=== PATIENT | female | born 1965 | race African-American/Black ===

== ENCOUNTER 2016-12-12 04:54 | Emergency (ER) | payer OTHER ==
[~2016-12-12] VITALS: Ht 160 cm; Wt 108.9 kg
--- NOTE | 2016-12-12 05:18 | ED NEURO DEFICIT/STROKE ---
History of Present Illness General Chief Complaint: General Adult Stated Complaint: LT SIDE FACIAL NUMBNESS,C/O HIGH BP,LT L Source: patient Exam Limitations: no limitations Vital Signs & Intake/Output Vital Signs & Intake/Output Vital Signs Date Time Temp Pulse Resp B/P B/P Pulse O2 O2 Flow FiO2 Mean Ox Delivery Rate 12/12 0540 138/79 12/12 0510 97.2 87 18 160/88 99 Room Air Triage Note: PT TO ED C/O L LEG PAIN FROM HIP TO KNEE. PT ALSO STATES SHE HAS LEFT SIDED FACIAL NUMBNESS. PT STATES IF SHE PRESSES ON FACE IT IS PAINFUL. PT STATES HER FACE FEELS TIGHT. PT STATES SHE TOOK 2 BABY ASPIRIN AND DRANK A BOTTLE OF WATER AND STARTED TO FEEL SOME RELIEF FROM FACIAL NUMBNESS. Triage Nurses Notes Reviewed? yes HPI: For the past week the patient has been having diffuse body aches but no fevers or chills. She took a few nights off from work to attempt to feel better. For the most part all of her symptoms have resolved however she continues to have pain from her left hip to behind her left knee. The pain is aching in nature. The pain is constant. There are no aggravating or mitigating factors. She rates the pain as 7 out of 10. Patient was at work tonight and it felt like her left side of her face went numb. The numbness stretched from her eye down or chin. Patient also felt like the left side of her face was scrunching up. Patient denies any headaches. This took her blood pressure work and was 160/88 which is elevated for the patient. Patient denies any headache or blurred vision. Patient became concerned this might be having a stroke so comes to the emergency room for evaluation. Patient took 2 baby aspirin prior to arrival. Past History Travel History Traveled to [place] past 21 day No Medical History Any Pertinent Medical History? none Surgical History Surgical History: non-contributory Psychosocial History What is your primary language Slovenian Tobacco Use: Never used ETOH Use: occasional use Illicit Drug Use: denies illicit drug use Family History Hx Contributory? No Review of Systems Review of Systems Constitutional: Reports: no symptoms. EENTM: Reports: no symptoms. Respiratory: Reports: no symptoms. Cardiovascular: Reports: no symptoms. GI: Reports: no symptoms. Genitourinary: Reports: no symptoms. Musculoskeletal: Reports: no symptoms. Skin: Reports: no symptoms. Neurological/Psychological: Reports: see HPI. Hematologic/Endocrine: Reports: no symptoms. Immunologic/Allergic: Reports: no symptoms. All Other Systems: Reviewed and Negative Physical Exam Physical Exam General Appearance: well developed/nourished, alert, awake, anxious, mild distress Head: atraumatic, normal appearance Eyes: Bilateral: PERRL, EOMI. Ears, Nose, Throat: normal ENT inspection, moist mucous membrane, hearing grossly normal Neck: normal inspection, supple, full range of motion Respiratory: normal breath sounds, chest non-tender, no respiratory distress, lungs clear Cardiovascular: regular rate/rhythm, normal peripheral pulses Gastrointestinal: normal bowel sounds, soft, non-tender Extremities: normal range of motion Psychiatric: awake, alert, oriented x 3 Cranial Nerves: normal hearing, normal speech, PERRL, NO FACIAL DROOP Coordination/Gait: normal gait Motor/Sensory: no motor/sensory deficits, NO SENSORY DEFICITS Core Measures CVA/TIA Diagnosis: No Severe Sepsis Present: No Septic Shock Present: No Progress Differential Diagnosis: Hua's Palsy, electrolyte imbalance, intracranial mass/ tumor, seizure disorder, stroke, subarachnoid Hem. Plan of Care: Orders Procedure Date/time Status TROPONIN LEVEL 12/12 516 Complete COMPREHENSIVE METABOLIC PANEL 12/12 516 Complete CBC WITHOUT DIFFERENTIAL 12/12 516 Complete EKG 12/12 516 Active Laboratory Tests 12/12/16 0534: Anion Gap 14, Estimated GFR > 60, BUN/Creatinine Ratio 18.9, Glucose 110 H, Calcium 9.2, Total Bilirubin 0.6, AST 32, ALT 56 H, Alkaline Phosphatase 109, Troponin I < 0.01, Total Protein 7.7, Albumin 4.1, Globulin 3.6, Albumin/ Globulin Ratio 1.1, CBC w Diff NO MAN DIFF REQ, RBC 4.87, MCV 79.9 L, MCH 26.2 L, RDW 15.7 H, MPV 9.4, Gran % 51.8, Lymphocytes % 38.5, Monocytes % 6.1, Eosinophils % 3.3, Basophils % 0.3, Absolute Granulocytes 5.7, Absolute Lymphocytes 4.2 H, Absolute Monocytes 0.7 H, Absolute Eosinophils 0.4, Absolute Basophils 0, PUBS MCHC 32.8 L Diagnostic Imaging: Viewed by Me: CT Scan. Discussed w/RAD: CT Scan. Radiology Impression: PATIENT: TAE CHAVES PRESENT AGE: 51 PATIENT ACCOUNT NO: [id number] : 63 LOCATION: [facility] ORDERING PHYSICIAN: NAYELI RANGEL MD SERVICE DATE: 12/12/16 EXAM TYPE: CAT - CT HEAD WO IV CONTRAST EXAMINATION: CT HEAD WITHOUT CONTRAST CLINICAL INFORMATION: Left facial numbness. COMPARISON: None. TECHNIQUE: Contiguous axial imaging was performed from the skull base to vertex without intravenous contrast. DLP: 529 mGy-cm. FINDINGS: There is no evidence of acute intracranial hemorrhage or territorial infarction. No abnormal mass effect or midline shift is seen. Negro to white matter differentiation is well preserved. No extra-axial fluid collections are identified. No hydrocephalus. No significant volume loss. There is no abnormal attenuation within the brain parenchyma. The osseous structures and soft tissues are normal. Mild opacification of the left sphenoid sinus. The mastoid air cells and visualized portions of the paranasal sinuses are otherwise well aerated. IMPRESSION: No acute intracranial pathology. DICTATED BY: JAMIE RIVERA MD DATE/TIME DICTATED:12/12/16533 KNOCKOUT WORKER:[email or web address] DATE/TIME TRANSCRIBED:12/12/16533 CONFIDENTIAL, DO NOT COPY WITHOUT APPROPRIATE AUTHORIZATION. <Electronically signed in Other Vendor System> SIGNED BY: JAMIE RIVERA MD 12/12/1639, PATIENT: TAE CHAVES PRESENT AGE: 51 PATIENT ACCOUNT NO: [id number] : 63 LOCATION: [facility] ORDERING PHYSICIAN: NAYELI RANGEL MD SERVICE DATE: 12/12/16 EXAM TYPE: RAD - XRY-KNEE COMPLETE LEFT EXAMINATION: XR KNEE, LEFT CLINICAL INFORMATION: Pain COMPARISON: None TECHNIQUE : Four views of the left knee. FINDINGS: No fracture or subluxation. Compartmental joint spaces are maintained. Small tricompartmental marginal osteophytes. No joint effusion. No acute soft tissue abnormality. IMPRESSION: Small tricompartmental marginal osteophytes. Otherwise unremarkable study. DICTATED BY: ASA RIVERA MDED DATE/TIME DICTATED:12/12/16609 KNOCKOUT WORKER:[email or web address] DATE/TIME TRANSCRIBED:12/12/16609 CONFIDENTIAL, DO NOT COPY WITHOUT APPROPRIATE AUTHORIZATION. <Electronically signed in Other Vendor System> SIGNED BY: NICOLE LOPEZ,JAMIE 12/12/16 0615 Initial ED EKG: NSR, nonspecific ST T wave chg Departure Departure Disposition: HOME OR SELF CARE Condition: Stable Clinical Impression Primary Impression: Facial numbness Secondary Impressions: Left knee pain Referrals: SINAN LOPEZ,JACK UNKNOWN (PCP/Family) Additional Instructions: FOLLOW UP WITH DR. MENON FOR YOUR KNEE FOLLOW UP WITH YOUR REGULAR DOCTOR ABOUT YOUR FACIAL NUMBNESS AND ELEVATED BLOOD PRESSURE THAT YOU HAD AT WORK. RETURN FOR ANY CONCERNS Departure Forms: Customer Survey General Discharge Information
--- NOTE | 2016-12-12 05:39 | CT SCAN REPORT ---
EXAMINATION: CT HEAD WITHOUT CONTRAST CLINICAL INFORMATION: Left facial numbness. COMPARISON: None. TECHNIQUE: Contiguous axial imaging was performed from the skull base to vertex without intravenous contrast. DLP: 529 mGy-cm. FINDINGS: There is no evidence of acute intracranial hemorrhage or territorial infarction. No abnormal mass effect or midline shift is seen. Negro to white matter differentiation is well preserved. No extra-axial fluid collections are identified. No hydrocephalus. No significant volume loss. There is no abnormal attenuation within the brain parenchyma. The osseous structures and soft tissues are normal. Mild opacification of the left sphenoid sinus. The mastoid air cells and visualized portions of the paranasal sinuses are otherwise well aerated. IMPRESSION: No acute intracranial pathology.
[2016-12-12 05:50] LABS: ABSOLUTE BASOPHIL COUNT 0 /CUMM (0.0-0.2); ABSOLUTE EOSINOPHIL COUNT 0.4 /CUMM (0.0-0.7); ABSOLUTE GRANULOCYTE CT 5.7 /CUMM (1.4-6.5); ABSOLUTE LYMPH COUNT 4.2 /CUMM (1.2-3.4); ABSOLUTE MONOCYTE COUNT 0.7 /CUMM (0.10-0.60); BASOPHIL % 0.3 % (0.0-2.0); EOSINOPHIL % 3.3 % (0-5); GRANULOCYTE % 51.8 % (42.2-75.2); HEMATOCRIT 38.9 % (37-47); MEAN CORPUSCULAR HGB 26.2 PG (27.0-31.0); MEAN CORPUSCULAR HGB CONC 32.8 G/DL (33.0-37.0); MEAN CORPUSCULAR VOLUME 79.9 FL (81.0-99.0); MEAN PLATELET VOLUME 9.4 FL (7.4-10.4); PLATELET COUNT 217 /CUMM (130-400); RBC DISTRIBUTION WIDTH 15.7 % (11.5-14.5); RED BLOOD CELL CT 4.87 /CUMM (4.20-5.40)
--- NOTE | 2016-12-12 06:15 | RADIOLOGY REPORT ---
EXAMINATION: XR KNEE, LEFT CLINICAL INFORMATION: Pain COMPARISON: None TECHNIQUE: Four views of the left knee. FINDINGS: No fracture or subluxation. Compartmental joint spaces are maintained. Small tricompartmental marginal osteophytes. No joint effusion. No acute soft tissue abnormality. IMPRESSION: Small tricompartmental marginal osteophytes. Otherwise unremarkable study.
== END 2016-12-12 06:51 ==
LOC: ERH 04:54
PROVIDERS: Emergency Medicine
DX: R20.0 Anesthesia of skin (principal); M25.562 Pain in left knee
CPT/HCPCS: 73562-LT; 93005; 93010